=== PATIENT | female | born 1955 | race Caucasian/White ===

== ENCOUNTER 2020-02-28 11:02 | Outpatient (CLI) | payer MEDICARE | END 2020-02-28 11:03 | disposition home or self-care (01) | LOC: LAB 11:02 | PROVIDERS: ATTEND Internal Medicine | DX: B34.9 Viral infection, unspecified (principal) ==

== ENCOUNTER 2022-01-18 08:00 | Outpatient (CLI) | payer MEDICARE ==
[2022-01-18 15:31] LABS: BASOPHILS # (AUTO) 0.1 10^3/uL (0.0-0.1); BASOPHILS % (AUTO) 1.1 %; EOSINOPHILS # (AUTO) 0.3 10^3/uL (0.0-0.7); EOSINOPHILS % (AUTO) 4.8 %; HCT - HEMATOCRIT 44.5 % (37.0-47.0); HGB - HEMOGLOBIN 14.1 g/dL (12.0-16.0); LYMPHOCYTES # (AUTO) 2.6 10^3/uL (1.5-3.5); LYMPHOCYTES % (AUTO) 39.7 %; MEAN CORPUSCULAR HEMOGLOBIN 30.1 pg (27.0-31.0); MEAN CORPUSCULAR HGB CONC 31.7 g/dL (32.0-36.0); MEAN CORPUSCULAR VOLUME 95.1 fL (81.0-99.0); MEAN PLATELET VOLUME 10.3 fL (7.9-10.8); MONOCYTES % (AUTO) 14.4 %; NEUTROPHILS # (AUTO) 2.6 10^3/uL (1.5-6.6); NEUTROPHILS % (AUTO) 39.2 %; PLT - PLATELET COUNT 253 10^3/uL (130-450); RED BLOOD COUNT 4.68 10^6/uL (4.20-5.40); RED CELL DISTRIBUTION WIDTH 14.2 % (12.0-15.0); WHITE BLOOD COUNT 6.7 x10^3/uL (4.8-10.8)
[2022-01-18 15:52] LABS: ALBUMIN 3.8 g/dL (3.2-5.5); ALBUMIN/GLOBULIN RATIO 1.2 (1.0-2.2); BILIRUBIN,TOTAL 0.6 mg/dL (0.2-1.0); CALCIUM 9.3 mg/dL (8.5-10.3); CREATININE 0.9 mg/dL (0.4-1.0); POTASSIUM 4.5 mmol/L (3.5-5.0)
== END 2022-01-18 23:59 | disposition home or self-care (01) ==
LOC: LAB 08:00
PROVIDERS: ATTEND Internal Medicine
DX: E78.5 Hyperlipidemia, unspecified (principal); E03.9 Hypothyroidism, unspecified; Z79.899 Other long term (current) drug therapy
CPT/HCPCS: 36415; 80053; 82306; 82465; 83718; 84443; 85025

== ENCOUNTER 2022-12-01 09:44 | Outpatient (CLI) | payer MEDICARE ==
--- NOTE | 2022-12-01 12:43 | Ultrasound Report ---
PROCEDURE: Abdomen Limited INDICATIONS: BLOATING, NAUSEA, RUQ PAIN TECHNIQUE: Real-time focused scanning was performed of the abdomen, with image documentation. COMPARISONS: None. FINDINGS: Liver: Increased liver echogenicity, commonly mild hepatic steatosis. Gallbladder: Absent. Biliary ducts: Intrahepatic bile ducts are non-dilated. Extrahepatic bile duct caliber measures 6.5 mm. Normal is 6-7 mm or less in diameter, or 10 mm or less post-cholecystectomy. Pancreas: Visualized portions of the pancreas are sonographically normal. Right kidney: Normal in size and echotexture. Right kidney measures 10.5 cm long. No hydronephrosis or nephrolithiasis. No solid masses. No complex renal cystic lesions which require follow-up. Aorta: Visualized aorta is normal in caliber at less than 3 cm. IVC: Intrahepatic inferior vena cava is patent. Miscellaneous: No free abdominal fluid. IMPRESSION: No acute findings explaining the patient's right upper quadrant pain and nausea. Suspect mild hepatic steatosis. Reviewed by: Ezra Hernández on 12/01/2022 12:41 PM PDT Approved by: Ezra Hernández on 12/01/2022 12:41 PM PDT Station ID: [id number]
== END 2022-12-01 09:45 | disposition home or self-care (01) ==
LOC: DI 09:44
PROVIDERS: ATTEND Internal Medicine
DX: R19.07 Generalized intra-abdominal and pelvic swelling, mass and lump (principal); R11.0 Nausea; R10.11 Right upper quadrant pain

== ENCOUNTER 2022-12-14 12:13 | Outpatient (CLI) | payer MEDICARE ==
[2022-12-14] MEDS ORDERED: iohexoL-300 100 ML VIAL ONE (12:29)
[2022-12-14] MEDS ORDERED: DIATR MEGLU/DIATRIZOATE SODIUM 120 ML BOTTLE ONE (12:29)
[2022-12-14 12:50] LABS: CREATININE 0.8 mg/dL (0.4-1.0)
[2022-12-14] MEDS ORDERED: DIATRIZOATE MEGLU/DIATRIZO SOD 30 ML BOTTLE PO ONE (14:31)
[2022-12-14] MEDS ORDERED: iohexoL-300 100 ML VIAL IVP ONE (14:32)
--- NOTE | 2022-12-14 15:47 | CT Report ---
PROCEDURE: ABDOMEN/PELVIS W INDICATIONS: ABD PAIN CONTRAST: 100ml Omnipaque 300 TECHNIQUE: After the administration of oral and intravenous contrast, 5 mm thick sections acquired from the diap hragms to the symphysis. 5 mm thick coronal and sagittal reformats were acquired. For radiation dos e reduction, the following was used: automated exposure control, adjustment of mA and/or kV accordin g to patient size. COMPARISON: Abdominal ultrasound 12/01/2022. FINDINGS: Image quality: Good. Beam hardening in the pelvis. Lung bases and heart: No pleural effusion. Mitral annular calcification. Liver: No focal lesion. Hepatic steatosis. Gallbladder and biliary tree: Surgically absent. No biliary dilation, accounting for post-cholecystec az state. Spleen: No splenomegaly. Pancreas: Enhances uniformly. Adrenals: No nodule. Kidneys and ureters: No hydronephrosis. Bowel and peritoneum: Stomach is not significantly distended. Possible thickening at the gastric pylo kash. No small bowel obstruction. Somewhat prominent stool in the proximal colon. The appendix is part ially visualized and is not distended. Lymph nodes: No central or retroperitoneal adenopathy. Vessels: No aneurysm. Mild calcified plaque. PELVIS Beam hardening artifact. Reproductive organs: Uterus is not seen. Bladder: Not well seen. Lymph nodes: Unremarkable. Bones: No aggressive osseous abnormality. Bilateral L5 pars defect. Grade 1 anterolisthesis of L5 on S1 measuring 0.7 cm. Other: None. IMPRESSION: Questionable thickening at the gastric pylorus. No small bowel obstruction. No free fluid. Hepatic steatosis. Reviewed by: Mendoza Buchanan MD on 12/14/2022 3:45 PM PDT Approved by: Mendoza Buchanan MD on 12/14/2022 3:45 PM PDT Station ID: [id number]
== END 2022-12-14 12:14 | disposition home or self-care (01) ==
LOC: LAB 12:13
PROVIDERS: ATTEND Internal Medicine
DX: R10.9 Unspecified abdominal pain (principal); Z79.899 Other long term (current) drug therapy; K76.0 Fatty (change of) liver, not elsewhere classified
CPT/HCPCS: 36415; 74177; 82565; Q9963; Q9967

== ENCOUNTER 2023-02-23 07:24 | Day surgery (SDC) | payer MEDICARE ==
[~2023-02-23 07:24] MED LIST: LIDOCAINE-PF 2% 10 ML AMP SUBQ ONE; PROPOFOL 500 MG/50 ML 500 MG/50 ML VIAL ONE
[2023-02-23] MEDS ORDERED: LACTATED RINGERS 1,000 ML IV ONE ×2 (07:38→09:19)
--- NOTE | 2023-02-23 08:07 | ANESTHESIA ---
Pre-Anesthesia VS, & Labs - Diagnosis screening exam and epigastric pain - Procedure EGD and colonoscopy Vital Signs: Temp Pulse Resp BP Pulse Ox O2 Flow Rate 36. C L 62 15 141/85 H 99 02/23/23 07:30 02/23/23 07:30 02/23/23 07:30 02/23/23 07:30 02/23/23 07:30 Height: 5 ft 9 in Weight (kg): 76.4 kg Body Mass Index: 24.8 BMI Classification: Normal - NPO >8 hours - Is Patient ?: No Home Medications and Allergies Home Medications: Ambulatory Orders Levothyroxine [Synthroid] 88 mcg PO QDAC 02/22/23 Levothyroxine [Synthroid] 88 mcg PO QDAC 02/22/23 Allergies/Adverse Reactions: Allergies Allergy/AdvReac Type Severity Reaction Status Date / Time acetaminophen [From Tylenol] Allergy Unknown Verified 02/22/23 12:59 Penicillins Allergy Rash Verified 02/22/23 12:59 prednisolone acetate, Allergy Anaphylaxis Verified 02/22/23 12:59 micronized oxycodone AdvReac Hallucinati Verified 02/22/23 12:59 ons Anes History & Medical History - Anesthetic History Anesthesia Complications: reports: No previous complications - Medical History Cardiovascular: reports: None Pulmonary: reports: Other (snores) Gastrointestinal: reports: None Urinary: reports: None Neuro: reports: None Musculoskeletal: reports: None Endocrine/Autoimmune: reports: HyPOthyroidism Blood Disorders: reports: None Skin: reports: None Smoking Status: Never smoker Psychosocial: reports: Cannabis, Other (PTSD) History of Cancer?: No - Surgical History General: reports: Cholecystectomy, Colonoscopy Eyes Ears Nose Throat (EENT): reports: Tonsil/Adenoidectomy Orthopedic: reports: Hip replacement Exam General: Alert, Oriented x3, Cooperative, No acute distress Dental: WNL Mouth Openin Fingerbreadth Neck Mobility: Normal Mallampati classification: III Thyromental Distance: less than 4 cm Mental/Cognitive Status: Alert/Oriented X3, Normal for patient Plan Anesthesia Type: General, Total IV Consent for Procedure(s) Verified and Reviewed: Yes Code Status: Attempt Resuscitation ASA classification: 2-Mild systemic disease Is this case an emergency?: No
--- NOTE | 2023-02-23 08:31 | HISTORY & PHYSICAL EXAMINATION ---
Chief Complaint - Chief Complaint Chief Complaint: epigastric pain/ discomfort History of Present Illness - History Obtained From Records Reviewed: yes History obtained from: pt Exam Limitations: none - History of Present Illness HPI Comment/Other: hx h pylori. having epigastric discomfort no prior colon cancer screening History - Past Medical History Cardiovascular: reports: None Respiratory: reports: Other (snores) Neuro: reports: None Endocrine/Autoimmune: reports: HyPOthyroidism GI: reports: None : reports: None HEENT: reports: None Psych: reports: Post traumatic stress disorder Musculoskeletal: reports: None Derm: reports: None MRSA Hx?: No - Past Surgical History General: reports: Cholecystectomy, Colonoscopy Ortho: reports: Hip replacement HEENT: reports: Tonsil/Adenoidectomy Meds/Allgy - Home Medications Home Medications: Ambulatory Orders Medication Instructions Recorded Confirmed Levothyroxine [Synthroid] 88 mcg PO QDAC 02/22/23 02/22/23 - Allergies Allergies/Adverse Reactions: Allergies Allergy/AdvReac Type Severity Reaction Status Date / Time acetaminophen [From Tylenol] Allergy Unknown Verified 02/22/23 12:59 Penicillins Allergy Rash Verified 02/22/23 12:59 prednisolone acetate, Allergy Anaphylaxis Verified 02/22/23 12:59 micronized oxycodone AdvReac Hallucinati Verified 02/22/23 12:59 ons Review of Systems - Other Findings Other Findings: 10 pt ros as above otherwise unremarkable Exam - Vital Signs Vital Signs: Vital Signs x48h Temp Pulse Resp BP Pulse Ox 02/23/23 07:30 36. C L 62 15 141/85 H 99 - Physical Exam General Appearance: positive: No acute distress, Alert Neck: positive: No JVD, Trachea midline Respiratory: positive: No respiratory distress Cardiovascular: positive: Regular rate & rhythm Abdomen: positive: No distention Neurologic/Psychiatric: positive: Oriented x3 Conclusion/Plan - Problem List (1) Epigastric abdominal pain Conclusion/Plan: hx h pylori. plan egd with biopsies plan colonoscopy for screening parq held and consent obtained
[2023-02-23] MEDS ORDERED: GLYCOPYRROLATE 1 MG/5 ML VIAL ONE (09:05)
[2023-02-23 09:43] VITALS: BP 118/82
--- NOTE | 2023-02-23 13:26 | ANESTHESIA POST OP EVALUATION ---
Anesthesia Post Eval - Post Anesthesia Eval Vitals: Last Vital Signs Temp 36.5 C 02/23/23 09:20 Pulse 88 02/23/23 09:37 Resp 16 02/23/23 09:37 BP 118/82 H 02/23/23 09:37 Pulse Ox 99 02/23/23 09:37 O2 Flow Rate CV Function Including HR & BP: Stable Pain Control: Satisfactory Nausea & Vomiting: Negative Mental Status: Baseline Respiratory Status: Airway Patent Hydration Status: Satisfactory Anesthesia Complications: None
== END 2023-02-23 07:25 | disposition home or self-care (01) ==
LOC: SDS 07:24
PROVIDERS: ATTEND Surgery
PROC: 0DB68ZX Excision of Stomach, Via Natural or Artificial Opening Endoscopic, Diagnostic (ICD-10-PCS; 2023-02-23)
PROC: 0DJD8ZZ Inspection of Lower Intestinal Tract, Via Natural or Artificial Opening Endoscopic (ICD-10-PCS; principal; 2023-02-23 08:30)
PROC: 0DB98ZX Excision of Duodenum, Via Natural or Artificial Opening Endoscopic, Diagnostic (ICD-10-PCS; 2023-02-23 08:30)
DX: Z12.11 Encounter for screening for malignant neoplasm of colon (principal); R10.13 Epigastric pain; F43.10 Post-traumatic stress disorder, unspecified
CPT/HCPCS: 43239; G0121; J7120

== ENCOUNTER 2023-06-08 14:26 | Outpatient (CLI) | payer MEDICARE | END 2023-06-08 14:27 | disposition home or self-care (01) | LOC: LAB 14:26 | PROVIDERS: ATTEND Internal Medicine | DX: L03.90 Cellulitis, unspecified (principal); K90.9 Intestinal malabsorption, unspecified | CPT/HCPCS: 36415; 81599; 82306; 82607; 84590; 84597 ==

== ENCOUNTER 2023-08-10 11:33 | Outpatient (CLI) | payer MEDICARE ==
[2023-08-10] MEDS ORDERED: iohexoL-300 100 ML VIAL IVP ONE (14:32)
--- NOTE | 2023-08-10 16:09 | CT Report ---
PROCEDURE: ABDOMEN W INDICATIONS: RUQ PAIN CONTRAST: 100ml omni 300 TECHNIQUE: After the administration of oral and intravenous contrast, 5 mm thick sections acquired from the diap hragms to the iliac crests. 5 mm thick coronal and sagittal reformats were acquired. For radiation dose reduction, the following was used: automated exposure control, adjustment of mA and/or kV accor ding to patient size. COMPARISON: CT abdomen pelvis 12/14/2022. FINDINGS: Image quality: Excellent. Lung bases and heart: Unremarkable. Liver: No solid mass. Gallbladder and biliary tree: Surgically absent. No biliary dilation, accounting for post-cholecystec az state. Spleen: No splenomegaly. Pancreas: No pancreatic ductal dilation. Adrenals: No adrenal nodule. Kidneys and ureters: No hydronephrosis. No renal cystic lesion which requires follow up. No solid mas s. No kidney stones. Bowel and peritoneum: No bowel distension. No pathologic free fluid. Gastric pylorus is unchanged. Pr ominent stool in the colon. The appendix is partially visualized and is not dilated. Lymph nodes: No central or retroperitoneal adenopathy. Vessels: No infrarenal aortic aneurysm. Bones: No aggressive osseous abnormality. Multilevel DDD. Bilateral L5 pars defect. Other: No significant ventral hernia. IMPRESSION: Prominent stool in the colon. This could represent constipation. No acute inflammatory process is identified. No free fluid. No kidney stones. Postcholecystectomy. Reviewed by: Mendoza Buchanan MD on 08/10/2023 4:08 PM PST Approved by: Mendoza Buchanan MD on 08/10/2023 4:08 PM PST Station ID: [id number]
== END 2023-08-10 11:34 | disposition home or self-care (01) ==
LOC: LAB 11:33
PROVIDERS: ATTEND Internal Medicine Gastroenterology
DX: M94.0 Chondrocostal junction syndrome [Tietze] (principal); R19.7 Diarrhea, unspecified; R19.8 Other specified symptoms and signs involving the digestive system and abdomen; R11.0 Nausea; R10.11 Right upper quadrant pain; Z90.49 Acquired absence of other specified parts of digestive tract
CPT/HCPCS: 36415; 74160; 82565; Q9967